=== PATIENT | male | born 2000 | race Caucasian/White ===

== ENCOUNTER 2019-12-08 19:57 | Emergency (ER) | payer MEDICAID ==
[~2019-12-08] VITALS: Ht 165.1 cm; Wt 74.4 kg
[2019-12-08 20:04] VITALS: Ht 165.1 cm; Wt 74.4 kg
[2019-12-08 21:17] VITALS: BP 124/77
== END 2019-12-08 21:17 | disposition home or self-care (01) ==
LOC: ED 19:57
DX: S61.211A Laceration without foreign body of left index finger without damage to nail, initial encounter (principal); W26.0XXA Contact with knife, initial encounter; Y93.89 Activity, other specified; Y92.89 Other specified places as the place of occurrence of the external cause; Y99.8 Other external cause status
CPT/HCPCS: 90715; A4570; J2001

== ENCOUNTER 2019-12-10 13:06 | Emergency (ER) | payer MEDICAID ==
[~2019-12-10] VITALS: Ht 160 cm; Wt 76.7 kg
[2019-12-10 14:05] VITALS: BP 131/79; Ht 160 cm; Wt 76.7 kg
== END 2019-12-10 15:25 | disposition home or self-care (01) ==
LOC: ED 13:06
DX: S61.211D Laceration without foreign body of left index finger without damage to nail, subsequent encounter (principal); X58.XXXD Exposure to other specified factors, subsequent encounter

== ENCOUNTER 2019-12-16 14:37 | Emergency (ER) | payer MEDICAID ==
[~2019-12-16] VITALS: Ht 167.6 cm; Wt 78.9 kg
[2019-12-16 14:49] VITALS: Ht 167.6 cm; Wt 78.9 kg
[2019-12-16 15:29] VITALS: BP 109/58
== END 2019-12-16 15:29 | disposition home or self-care (01) ==
LOC: ED 14:37
DX: S61.211D Laceration without foreign body of left index finger without damage to nail, subsequent encounter (principal); X58.XXXD Exposure to other specified factors, subsequent encounter

== ENCOUNTER 2020-01-05 21:23 | Emergency (ER) | payer MEDICAID ==
[~2020-01-05] VITALS: Ht 170.2 cm; Wt 77.6 kg
[2020-01-05 21:43] VITALS: Ht 170.2 cm; Wt 77.6 kg
[2020-01-05 23:52] VITALS: BP 128/83
== END 2020-01-05 23:52 | disposition home or self-care (01) ==
LOC: ED 21:23
DX: L25.8 Unspecified contact dermatitis due to other agents (principal); T36.0X5A Adverse effect of penicillins, initial encounter; Y92.89 Other specified places as the place of occurrence of the external cause
CPT/HCPCS: Q0163